=== PATIENT | female | born 1960 | race Caucasian/White ===

== ENCOUNTER 2016-11-22 07:33 | Day surgery (SDC) | payer OTHER ==
[2016-11-21 10:03] LABS: BLOOD UREA NITROGEN 19 mg/dL (7-18)
[2016-11-21 10:07] LABS: ASPARTATE AMINO TRANSFERASE 11 U/L (15-37)
[~2016-11-22] VITALS: Ht 170.2 cm; Wt 117.0 kg
[~2016-11-22 07:33] MED LIST: ASPI-496 PO; BUPIVACAINE/PF 0.5% ONE; EPINEPHRINE 1 MG/ML, 1ML ONE; GLUC1CAP48 PO; L.AC1CAP6 PO; LIDOCAINE/PF 1.5%-EPI 1:200K, 30ML ONE; LOSA50TA6 PO; METO50TA11 PO; MULT-658 PO; TUMERIC PO
[2016-11-22 07:43] VITALS: BP 162/93
[2016-11-22] MEDS ORDERED: MIDAZOLAM 1 MG/ML, 2ML ONE (07:43)
[2016-11-22] MEDS ORDERED: FENTANYL PF 100 MCG/2ML ONE ×2 (07:43→09:15)
[2016-11-22] MEDS ORDERED: LACTATED RINGERS 1,000 ML IV SCH (07:58)
[2016-11-22] MEDS: LACTATED RINGERS 1,000 ML IV SCH ×2 (07:59→08:00)
[2016-11-22] MEDS ORDERED: DEXAMETHASONE 4 MG/ML, 1ML ONE (08:12)
[2016-11-22] MEDS ORDERED: PROPOFOL 10 MG/ML, 50ML ONE (08:12)
[2016-11-22] MEDS ORDERED: ONDANSETRON 2MG/ML, 2ML ONE (08:12)
[2016-11-22] MEDS ORDERED: CEFAZOLIN 1,000 MG ONE (08:12)
[2016-11-22] MEDS ORDERED: PROPOFOL 10 MG/ML, 20ML ONE (08:12)
[2016-11-22] MEDS ORDERED: BUPIVACAINE/PF-EPI 0.5% 1:200K INFIL ONE (08:24)
[2016-11-22] MEDS ORDERED: MEPERIDINE/PF 25MG/0.5ML IVPush PRN (08:30)
[2016-11-22] MEDS ORDERED: MIDAZOLAM 1 MG/ML, 2ML IV PRN (08:30)
[2016-11-22] MEDS ORDERED: OXYcodone 5 MG/5 ML ORAL.SOL UDC PO PRN (08:30)
[2016-11-22] MEDS ORDERED: PROMETHAZINE 25 MG/ML, 1ML IV PRN (08:30)
[2016-11-22] MEDS ORDERED: LABETALOL 5MG/ML, 20ML IV PRN (08:30)
[2016-11-22] MEDS ORDERED: ONDANSETRON 2MG/ML, 2ML IVPush PRN (08:30)
[2016-11-22] MEDS ORDERED: HYDROmorphone 1 MG/ML, 1ML IV PRN (08:30)
[2016-11-22] MEDS ORDERED: ALBUTEROL/IPRATROPIUM 2.5MG/0.5MG, 3 ML NPPB PRN (08:30)
[2016-11-22] MEDS ORDERED: hydrALAzine 20 MG/ML, 1ML IV PRN (08:30)
[2016-11-22] MEDS ORDERED: ACETAMINOPHEN 325 MG TABLET PO PRN (08:30)
[2016-11-22] MEDS: FENTANYL PF 100 MCG/2ML IV PRN ×2 (09:15→09:32)
[2016-11-22] MEDS ORDERED: ACETAMINOPHEN 650 MG/20.3 ML UDC ONE (09:16)
[2016-11-22] MEDS ORDERED: OXYcodone 5 MG/5 ML ORAL.SOL UDC ONE (09:16)
== END 2016-11-22 13:35 ==
LOC: OUT 07:33
PROVIDERS: ATTEND Orthopaedic Surgery
DX: S83.242A Other tear of medial meniscus, current injury, left knee, initial encounter (principal); S83.282A Other tear of lateral meniscus, current injury, left knee, initial encounter; M65.862 Other synovitis and tenosynovitis, left lower leg; M23.42 Loose body in knee, left knee; M17.12 Unilateral primary osteoarthritis, left knee; X58.XXXA Exposure to other specified factors, initial encounter; Y93.89 Activity, other specified; Y92.89 Other specified places as the place of occurrence of the external cause; Y99.8 Other external cause status; Z88.1 Allergy status to other antibiotic agents; Z91.040 Latex allergy status; I10 Essential (primary) hypertension
CPT/HCPCS: 29880; 36415; 80053; J0171; J0690; J1100; J2250; J2405; J2704; J3010; J3490; J7120

== ENCOUNTER → 2016-12-08 | Outpatient (CLI) | payer OTHER ==
[~2016-12-08] MED LIST changes: -BUPIVACAINE/PF 0.5% ONE; -EPINEPHRINE 1 MG/ML, 1ML ONE; -LIDOCAINE/PF 1.5%-EPI 1:200K, 30ML ONE; +METO-264 PO; -METO50TA11 PO
== END | disposition home or self-care (01) ==
LOC: CFH 15:50
PROVIDERS: ATTEND Orthopaedic Surgery
DX: M79.662 Pain in left lower leg (principal)